=== PATIENT | female | born 1985 | race Caucasian/White ===

== ENCOUNTER 2016-10-02 07:15 | Day surgery (SDC) | payer OTHER ==
[~2016-10-02] VITALS: Ht 182.9 cm; Wt 150.0 kg
[2016-10-02] VITALS (7 sets, daily range): BP systolic 127–151; BP diastolic 67–84; PULSE 68–79; RESP 16–17; O2SAT 94–98
[~2016-10-02 07:15] MED LIST: ALBU8.5H2 IH; ALPR1TAB7 PO; CITA20TA11 PO; DULO30CA50 PO; EPIN0.3P2 IJ; ERGO2000 PO; FAMO40TA6 PO; HYDR-4003 PO; HYDR50TA76 PO; HYOS0.1218 SL; LAMO100T PO; Lactated Ringer's 1,000 ML IV SCH; MONT10TA20 PO; OMEP20TA86 PO; ONDA4TAB12 PO; PROP20TA5 PO; TIZA2CAP9 PO
[2016-10-02] MEDS ORDERED: fentaNYL-PF 50 mCg/mL 2 mL Inj ONE (07:16)
[2016-10-02] MEDS ORDERED: Propofol 10,000 mCg/mL 20 mL Inj ONE (07:16)
--- NOTE | 2016-10-02 07:32 | PCM.HPANE ---
Patient Data Surgeon Admitting Provider: Attending Provider:Jose Carlin MD Primary Care Physician:Meera Girard Other Provider:Anny Mayoingham Anesthesia Reason for Visit Eosinophylic Gastritis Ht/WT & BMI Body Mass Index Allergies Coded Allergies: Cephalosporins (Verified Allergy, Severe, KEFLEX=N/V, 10/02/16) Contrast Media (Verified Allergy, Severe, Anaphylaxis, 10/02/16) codeine (Verified Allergy, Severe, N/V, 10/02/16) Penicillins (Verified Allergy, Intermediate, hives, vomiting AMOXICILLIN IS OK, 10/02/16) cyclobenzaprine (Verified Allergy, Intermediate, ITCH ALL OVER, 10/02/16) topiramate (Verified Allergy, Intermediate, VISUAL PROBLEMS, 10/02/16) cephalexin (Verified Adverse Reaction, Mild, VOMITTING, 10/02/16) orange juice (Verified Adverse Reaction, Mild, ANGIODERMA, 10/02/16) pineapple (Verified Adverse Reaction, Mild, ANGIODERMA, 10/02/16) metoclopramide (Verified Adverse Reaction, Unknown, 10/02/16) LEGS TWITCH Past Anesthesia History Anesthesia History: Denies:: Abnormal Airway, Anesthesia Reactions, Difficult Intubation, Fam Anesthesia Reaction, Fam Malignant Hypertherm, Malignant Hyperthermia Diabetes History Hx Diabetes?: No MRSA MRSA: No Medications Active Scripts Hyoscyamine SL 0.125 Mg Subl0.125 Mg SL QID #15 TAB.SL Prov:Declan Alvarenga MD 05/15/16 Reported Medications Tizanidine 2 Mg Capsule2 Mg PO TID 10/01/16 Omeprazole 20 Mg Tablet.dr20 Mg PO BID Ref 0 10/01/16 Hydrocodone-Acetaminophen 5-325 mg 1 Each Tablet1 Tablet PO Q4H PRN For Pain Ref 0 10/01/16 Ergocalciferol (Vitamin D2) (Vitamin D2)2,000 Unit Twdexp50,000 Unit PO WEEKLY 10/01/16 Duloxetine 30 Mg Capsule.dr30 Mg PO DAILY Ref 0 10/01/16 Ondansetron ODT 4 Mg Tab.rapdis4 Mg PO Q4 PRN For Nausea 05/10/16 Propranolol HCl 20 Mg Rpfbzz83 Mg PO HS 05/10/16 Hydroxyzine HCl (HydrOXYzine Hcl)50 Mg Xxpaik76 Mg PO HS 05/10/16 Famotidine 40 Mg Npaqnu49 Mg PO HS 05/10/16 Montelukast (Singulair)10 Mg Tpihdd03 Mg PO HS 30 Days Ref 0 12/15/14 Alprazolam 1 Mg Tablet1 Mg PO DAILY PRN panic attack 09/14/14 Lamotrigine (Lamictal)100 Mg Lxnutn116 Mg PO HS 30 Days Ref 0 09/14/14 Albuterol HFA (Proair HFA)8.5 Gm Hfa.aer.ad2 Puffs IH Q4 PRN For Shortness of Breath #1 INHALER 09/14/14 Epinephrine (Epipen 2-Danny)0.3 Mg/0.3 Ml Auto.injct0.3 Mg IJ DIRECTED 09/14/14 Citalopram 20 Mg Wymqtp06 Mg PO HS 07/28/14 Discontinued Reported Medications Alprazolam (Xanax)1 Mg Tablet1 Mg PO HS 05/10/16 Discontinued Scripts Ciprofloxacin 500 Mg Goqdbk966 Mg PO BID #20 TABLET Prov:Leigha De Los Santos MD 05/12/16 History History of ENT Problems?: No HEENT History: Denies:: Abnormal Airway Difficult Intubation Dysphagia Hearing Problem Hx of Heart Problems?: No Cardiovascular History: Denies:: AICD Atrial Fibrillation Chest Pain Congestive Heart Failure Hypertension Pacemaker Valvular Heart Disease Hx of Respiratory Problem?: Yes Respiratory History: Positive for:: Asthma (BROUGHT INHALER WITH HER) Dyspnea Pneumonia Denies:: COPD Chest Surgery Cough Emphysema Hemoptysis Tuberculosis Hx Neurologic Problems?: Yes Neurological History: Positive for:: Headaches Denies:: Alzheimer's Disease CVA Dementia Dizziness Parkinson's Disease Seizures Hx of GI Problems?: Yes Gastrointestinal History: Positive for:: Rectal Bleeding Denies:: Cirrhosis Diverticulitis Gastroesphageal Reflux Gastrointestinal Bleeding Heartburn Hepatitis Hiatal Hernia Hx of Problems?: No HX of Peritoneal Dialysis: No Female Hx: Denies:: Currently (TUBAL LIGATION 2008) Endometriosis Pelvic Inflammatory Problems with Breasts? Hx Musculoskeletal Problems?: No Hx of Psycho/Social Problems?: Yes Psycho Social History: Positive for:: Anxiety Bipolar Disorder Hx Depression Denies:: Suicide Attempt Hx Surgeries?: Yes (TONSILS,APPENDIX, TUBAL LIGATION) Hx Any Other Health Problems?: Yes Other History: Positive for:: Hospitalization (2 C-SECTIONS, D AND C) Denies:: Cancer Endocrine Disease Thyroid Disease History Blood Transfusions: Denies:: Blood Transfuse Reaction Blood Transfusions Hx Diabetes: No Hx Alcohol Use: Yes (intermittant)Hx Substance Use: No Smoking Status: Former Smoker Have You Smoked inLast 12 mo: No Stop/Bang JACI Risk Assessment: Low Risk, <3 Yes Risk Assessment Category Category 1A: Patient has history of documented sleep apnea, and HAS NOT received any narcotic, sedative or anesthesia administration during this stay. Category 1B: Patient has history of documented sleep apnea, and HAS received any narcotic , sedative or anesthesia administration during this stay Category 2: Patient has SUSPECTED Obstructive Sleep Apnea, and HAS received any narcotic , sedative or anesthesia administration during this stay. Category 3: Patient has SUSPECTED Obstructive Sleep Apnea and HAS NOT received narcotic, sedative or anesthesia administration during this stay. Category 4: Outpatient in Procedural Areas with known sleep apnea or who screen positive for High Risk via the STOP/BANG questionnaire. Exam Exam General Appearance: Alert, Oriented X3, Cooperative, No Acute Distress HEENT/AIRWAY: MP 2 Lungs: Clear to Auscultation, Normal Air Movement Heart: Exam Unremarkable, Regular Rate/Rhythm, No Murmurs/Rubs/Gallops Plan Impression Patient chart reviewed, patient interviewed and anesthestic plan with risks, benefits, and alternatives discussed, and informed consent obtained. ASA Physical Status: ASA2 Mod Systemic Disease Anesthetic Plan: MAC Bene/Risks/Altern/Consents: Yes HP Complete Prior to Induction: Yes Violet Roman MD Oct 02, 2016 07:32
[2016-10-02] MEDS: Lactated Ringer's 1,000 ML IV ONE ×2 (07:57→08:03)
[2016-10-02] MEDS ORDERED: Lactated Ringer's 1,000 ML IV SCH (08:07)
--- NOTE | 2016-10-02 08:08 | PCM.ANEP1 ---
Post Anesthesia Phase 1 PACU Phase 1 Assessment Vital Signs Vital Signs Date Time Temp Pulse Resp B/P Pulse Ox O2 Delivery O2 Flow Rate FiO2 10/02/16 07:32 36.6 77 17 136/84 96 Room Air Anesthetic Administered: MAC Level of Alertness: Awake, talking MILLAN's with Equal Strength: Yes Pain: No Nausea or Vomiting: No Oxygen Delivery: Nasal Cannula Lungs: Clear to Auscultation, Normal Air Movement Violet Roman MD Oct 02, 2016 08:08
[2016-10-02] MEDS ORDERED: Ondansetron 2 mg/mL 2 mL Inj IVPUSH PRN (08:10)
--- NOTE | 2016-10-02 08:13 | PCM.ANEP2 ---
Post Anesthesia Evaluation ASA/CMS Post Anesthesia VS in Patient's Normal Range?: Yes Resp Stable; Airway Patent?: Yes CV Function & Hydration Stable: Yes Mental Status Recovered?: Yes Pain control Satisfactory?: Yes N/V Control Satisfactory?: Yes Violet Roman MD Oct 02, 2016 08:13
--- NOTE | 2016-10-02 08:30 | ENDO ---
[address] [address] ENDOSCOPY PROCEDURE PATIENT: AC AMARAL : 1985 MR#: [id number] ADMIT: 10/02/2016 JOB ID: [id number] PROCEDURE: Esophagogastroduodenoscopy with biopsy. PREOPERATIVE DIAGNOSIS(ES): Dysphagia and eosinophilic gastritis. POSTOPERATIVE DIAGNOSIS: Mild nonerosive gastritis. ANESTHESIA: Monitored anesthesia care. COMPLICATIONS: None. BLOOD LOSS: Minimal. DESCRIPTION OF PROCEDURE: After risks and benefits explained to the patient, informed consent was obtained. After anesthesia administered, upper endoscope was inserted into the mouth, intubating into the esophagus, stomach, second portion of duodenum, and mucosa carefully examined. After the procedure was done, the scope was withdrawn and procedure terminated. FINDINGS: Upon inspection of the esophagus, the esophagus appeared normal without masses, ulcers, or lesions. Z-line located 40 cm from incisors. Upon entering the stomach, there was mild nonerosive gastritis that was seen. No ulcers or masses were noticed. Retroflexion was normal. Duodenal bulb, first and second portion were normal. Biopsies taken at duodenum, antrum and body of the stomach and distal esophagus. IMPRESSIONS: Mild nonerosive gastritis. RECOMMENDATION: Await pathology results. Follow up in GI Clinic as needed.
[2016-10-02] MEDS ORDERED: Pantoprazole 40 mg ER24 Tablet PO ONE ×2 (08:40→08:55)
[2016-10-02] MEDS ORDERED: LidocaineVisc 2%:Antacid 1:1 120 mL Suspension PO ONE ×2 (09:10→09:38)
--- NOTE | 2016-10-03 16:22 | PATH ---
SURGICAL PATHOLOGY Attending Physician:Jose Carlin MD CASE STATUS: Signed Out PATIENT NAME: AC AMARAL PID: [id number] : 1985 DATE COLLECTED:10/02/2016 20:02 SPECIMEN: 1: Duodenum, Biopsy 2: Stomach, Antrum, Biopsy 3: Gastric, Biopsy 4: Esophagus, Biopsy 5: Esophagus, Biopsy CLINICAL HISTORY: 1). DUODENAL BIOPSY 2). ANTRUM BIOPSY 3). GASTRIC BIOPSY 4). DISTAL ESOPHAGUS BIOPSY 5). MID ESOPHAGUS BIOPSY FINAL DIAGNOSIS: 1.DUODENUM, BIOPSY: DUODENAL MUCOSA WITH NO DIAGNOSTIC ABNORMALITY. Negative for active inflammation, features of sprue, dysplasia, and malignancy. 2.STOMACH, ANTRUM, BIOPSY: ANTRAL MUCOSA WITH NO DIAGNOSTIC ABNORMALITY. Negative for Helicobacter pylori organisms. Negative for intestinal metaplasia. Negative for dysplasia and malignancy. 3.STOMACH, BODY, BIOPSY: BODY-TYPE MUCOSA WITH NO DIAGNOSTIC ABNORMALITY. Negative for Helicobacter pylori organisms. Negative for intestinal metaplasia. Negative for dysplasia and malignancy. 4.DISTAL ESOPHAGUS, BIOPSY: SQUAMOUS MUCOSA WITH PATCHY INCREASED INTRAEPITHELIAL EOSINOPHILS (UP TO 24 PER HIGH-POWERED FIELD), SEE COMMENT. REACTIVE PARAKERATOSIS IS ALSO PRESENT. Negative for dysplasia and malignancy. 5.ESOPHAGUS, MID, BIOPSY: SQUAMOUS MUCOSA WITH INCREASED INTRAEPITHELIAL EOSINOPHILS (GREATER THAN 50 PER HIGH-POWERED FIELD), SEE COMMENT. Negative for dysplasia and malignancy. ICD10 code K20.0 NOTE: 4. 5. The distal and mid esophageal biopsies show increased intraepithelial eosinophils. In the proper clinical setting, the histopathologic appearance would support a clinical impression of eosinophilic esophagitis. The differential diagnosis also includes drug reaction, gastrointestinal reflux, and food allergies. GROSS DESCRIPTION: The specimen is received in five formalin filled containers labeled with the patient's name. 1). The specimen is sublabeled "duodenal" and consists of 2 portions of tissue which aggregate to 0.3 x 0.3 x 0.2 CM. The specimen is entirely submitted in cassette 1A. 2). The specimen is sublabeled "antrum" and consists of 2 portions of tissue which aggregate to zero 0.3 x 0.3 x 0.3 CM. The specimen is entirely submitted in cassette 2A. 3). The specimen is sublabeled "gastric body" and consists of 3 portions of tissue which aggregate to 0.4 x 0.4 x 0.3 CM. The specimen is entirely submitted in cassette 3A. 4). The specimen is sublabeled "distal esophagus" and consists of a 0.3 x 0.3 x 0.2 CM portion of tissue which is entirely submitted in cassette 4A. 5). The specimen is sublabeled "mid esophagus" and consists of a 0.3 x 0.2 x 0.2 CM portion of tissue which is entirely submitted in cassette 5A. 10/02/2016 DAC MICRO DESCRIPTION: See diagnosis. ICD-9 CODES: CPT CODES: 1: 97985 2: 75413 3: 74449 4: 18481 5: 68094 Electronically Signed Out Payton Daniel MD [facility] [address], [place] [address] Technical component performed at [facility], [facility] [address], [place], [address]
== END 2016-10-02 23:59 | disposition home or self-care (01) ==
LOC: END 07:15
PROVIDERS: ATTEND Internal Medicine Gastroenterology
DX: K52.81 Eosinophilic gastritis or gastroenteritis (principal); G47.33 Obstructive sleep apnea (adult) (pediatric); M79.7 Fibromyalgia
CPT/HCPCS: 43239; 88305; J2250; J3010; J7120

== ENCOUNTER 2017-01-17 07:55 | Emergency (ER) | payer OTHER ==
[~2017-01-17] VITALS: Ht 182.9 cm; Wt 150.0 kg
[~2017-01-17 07:55] MED LIST changes: -Lactated Ringer's 1,000 ML IV SCH
[2017-01-17 07:59] VITALS: BP 133/89; PULSE 95; RESP 20; O2SAT 97
[2017-01-17] MEDS ORDERED: Haloperidol 5 mg/mL Inj IVPUSH ONE (08:30)
[2017-01-17] MEDS ORDERED: Promethazine Inj 50 MG in 0.9% Sodium Chloride-Pha MIX 100 ML IV ONE ×2 (08:30→08:43)
[2017-01-17] MEDS ORDERED: 0.9% Sodium Chloride 1,000 ML IV ONE (08:30)
[2017-01-17] MEDS ORDERED: Ondansetron 2 mg/mL 2 mL Inj IVPUSH ONE (08:50)
[2017-01-17 09:32] VITALS: BP 121/72; PULSE 84; RESP 16; O2SAT 96
[2017-01-17] MEDS ORDERED: HYDROmorphone 1 mg/mL Inj IVPUSH ONE (10:00)
--- NOTE | 2017-01-17 10:10 | ED.REPORT ---
HPI-Headache Date of Service January 17, 2017 ED Provider: Sofi Luevano MD Patient is a 31 year old female with history of migraines who presents to [facility] ED complaining of a migraine headache that started last night. She states that the headache started out normally with photophobia and nausea but then started to get worse and was accompanied with blurry vision on the right eye. Pain is located on the right side. She also reports intermittent tingling and numbness in her right upper and lower extremities for the last 3-4 days. She denies any recent trauma to her head, sick contacts, new medications or foods. She took Tylenol last night with no relief. She takes Propranolol, 20 mg daily. She denies any other symptoms. Nursing Notes Stated Complaint: MIGRAINE/NAUSEA Chief Complaint: Headache Nursing Notes Reviewed: Yes Allergies: Coded Allergies: Cephalosporins (Verified Allergy, Severe, KEFLEX=N/V, 01/17/17) Contrast Media (Verified Allergy, Severe, Anaphylaxis, 01/17/17) codeine (Verified Allergy, Severe, N/V, 01/17/17) Penicillins (Verified Allergy, Intermediate, hives, vomiting AMOXICILLIN IS OK, 01/17/17) cyclobenzaprine (Verified Allergy, Intermediate, ITCH ALL OVER, 01/17/17) topiramate (Verified Allergy, Intermediate, VISUAL PROBLEMS, 01/17/17) promethazine (Verified Allergy, Unknown, Restlessness, 01/17/17) cephalexin (Verified Adverse Reaction, Mild, VOMITTING, 01/17/17) orange juice (Verified Adverse Reaction, Mild, ANGIODERMA, 01/17/17) pineapple (Verified Adverse Reaction, Mild, ANGIODERMA, 01/17/17) metoclopramide (Verified Adverse Reaction, Unknown, 01/17/17) LEGS TWITCH Scheduled Citalopram (Citalopram) 20 Mg Tablet 30 MG PO HS Duloxetine (Duloxetine) 30 Mg Capsule.dr 30 MG PO DAILY Epinephrine (Epipen 2-Danny) 0.3 Mg/0.3 Ml Auto.injct 0.3 MG IJ DIRECTED Ergocalciferol (Vitamin D2) (Vitamin D2) 2,000 Unit Tablet 50,000 UNIT PO WEEKLY Famotidine (Famotidine) 40 Mg Tablet 40 MG PO HS Hydroxyzine HCl (HydrOXYzine Hcl) 50 Mg Tablet 50 MG PO HS Hyoscyamine SL (Hyoscyamine SL) 0.125 Mg Subl 0.125 MG SL QID Lamotrigine (Lamictal) 100 Mg Tablet 100 MG PO HS Montelukast (Singulair) 10 Mg Tablet 10 MG PO HS Omeprazole (Omeprazole) 20 Mg Tablet.dr 20 MG PO BID Propranolol HCl (Propranolol HCl) 20 Mg Tablet 20 MG PO HS Tizanidine (Tizanidine) 2 Mg Capsule 2 MG PO TID Scheduled PRN Albuterol HFA (Proair HFA) 8.5 Gm Hfa.aer.ad 2 PUFFS IH Q4 PRN PRN For Shortness of Breath Alprazolam (Alprazolam) 1 Mg Tablet 1 MG PO DAILY PRN PRN panic attack Hydrocodone-Acetaminophen 5-325 mg (Hydrocodone-Acetaminophen 5-325 mg) 1 Each Tablet 1 TABLET PO Q4H PRN PRN For Pain Ondansetron ODT (Ondansetron ODT) 4 Mg Tab.rapdis 4 MG PO Q4 PRN PRN For Nausea oxyCODONE-Acetaminophen 5-325 mg (oxyCODONE-Acetaminophen 5-325 mg) 1 Each Tablet 1-2 TAB PO Q6H PRN PRN For Pain General Time Seen by MD: 08:09 Chief Complaint Migraine headache Hx Obtained From: Patient Arrived By: Walk-in Sudden in Onset?: No Onset Occurred: 9 - 12 hours ago Symptom Duration: Since onset Location: : Parietal right: Temporal right Quality: Fullness, Pressure Radiation: : Does not radiate Severity: Current: Pain level 9 out of 10 Recent Healthcare: No recent doctor visit Risk-Headache )( SAH Risk Stratification RF Statements: No risk factors )( IC Mass Risk Stratification RF Statements: No risk factors NIH Stroke Scale Level of Consciousness: Alert and responsive (0) Ask Month & Age: Both questions right (0) Open/Close Eyes/Hand [employer]: Performs both tasks (0) Horizontal EO Movements: None (0) Visual Eastman: No visual loss (0) Facial Palsy: Normal symmetry (0) Right Arm Motor Drift (10s): No drift 10 sec (0) Left Arm Motor Drift (10s): No drift 10 sec (0) Right Leg Motor Drift (5s): No drift 5 sec (0) Left Leg Motor Drift (5s): No drift 5 sec (0) Limb Ataxia FNF/Heel-Rico: No ataxia (0) Sensation (Arms/Legs/Face): Pinprick less sharp (1) Language Aphasia: No aphasia, normal (0) Dysarthria: No dysarthria, normal (0) Extinction/Inattention: No exctinct/inattent (0) NIHSS Score: 1 Date NIHSS Performed: January 17, 2017 Past Medical History Past Medical History Notes: PCP: DELIA Tena GI specialist: Dr. Carrillo Tube Splicer: Dr Lr in at [facility] in [place] Past Medical History Bipolar disorder Fibromyalgia Eosinophilic esophagitis Asthma IBS Hx of migraines Past Surgical History Reports: Appendectomy Reports: Tubal ligation Family History Crohn's disease, ana Smoking History Former Smoker Social History Alcohol Use: Denies alcohol use Other Social History: Good social support, , Lives with children, Local resident Ambulatory Status Independent Review of Systems Basic Review of Systems Respiratory: No shortness of breath, No wheeze Cardiovascular: No chest pain, No palpitations : No dysuria, No frequency Constitutional: Reports: Chills Eyes: Reports: Blurred right GI: Reports: Nausea, Vomiting, Denies: Abdominal pain, Constipation, Diarrhea Skin: Reports Diaphoresis, Denies Rash Neurologic: Reports: Headache, Numbness (Right upper and lower extremity), Denies: Dizziness Physical Exam Initial Vital Signs Vital Signs (First) Date Time Temp Pulse Resp B/P Pulse Ox O2 Delivery O2 Flow Rate FiO2 01/17/17 07:59 36.3 95 20 133/89 97 Room Air Initial VS: Reviewed, Vital signs normal General/Constitutional: Awake, Alert, No acute distress, Well appearing, Well developed, Well hydrated, Well nourished, Cooperative Head / Eyes: Atraumatic, Normocephalic, PERRL, EOMI, No nystagmus, No periorbital redness, No scleral icterus, Conjunctiva NL Acuity / Tonometry: Positive: Intraocular pressure R, Visual acuity abnormal R Pupils: Positive: Photophobia R Neck: Atraumatic, Supple, Full range of motion, No adenopathy, Non-tender Neurologic: Oriented X3, Speech NL, No motor deficits, CN II - XII intact Sensory Deficit: Positive: Lower extremity R, Upper extremity R Respiratory / Chest: Breath sounds = bilat, No respiratory distress, No wheezing Cardiovascular: Heart rate NL, Regular rhythm, Heart sounds NL, No murmurs Abdomen: Soft, Non-tender Skin: No rash, Warm, Dry, Intact Psychiatric: Affect NL, Mood NL Lower Extremity / Pelvis / MS: No swelling Interpretation & Diagnostics Lab Results Interpretation Result Diagram: 01/17/17 0830 01/17/17 0830 Test 01/17/17 08:30 01/17/17 13:13 White Blood Count 7.0th/mm3 (3.8-10.1) Red Blood Count 4.93mil/mm3 (3.90-5.20) Hemoglobin 13.1g/dL (12.0-15.6) Hematocrit 38.2% (35.0-46.0) Mean Corpuscular Volume 77.5fL (81-100) Mean Corpuscular Hemoglobin 26.6pg (27.0-35.0) Mean Corpuscular Hemoglobin Concent 34.3% (32.0-37.0) Red Cell Distribution Width 14.7% (12.3-15.4) Platelet Count 424bil/L (150-400) Neutrophils (%) (Auto) 65.5% (40-74) Lymphocytes (%) (Auto) 23.6% (14-46) Monocytes (%) (Auto) 3.8% (4-12) Eosinophils (%) (Auto) 6.4% (0-5) Basophils (%) (Auto) 0.6% (0-3) Sodium Level 139mEq/L (134-144) Potassium Level 4.2mEq/L (3.5-5.2) Chloride Level 102mEq/L (97-108) Carbon Dioxide Level 22mmol/L (18-29) Blood Urea Nitrogen 8mg/dL (6-20) Creatinine 0.71mg/dL (0.57-1.00) Estimat Glomerular Filtration Rate 136mL/min (>59) Glucose Level 145mg/dL (60-99) Calcium Level 9.8mg/dL (8.5-10.1) Total Bilirubin 0.4mg/dL (0.0-1.2) Aspartate Amino Transf (AST/SGOT) 35U/L (0-50) Alanine Aminotransferase (ALT/SGPT) 49U/L (0-32) Alkaline Phosphatase 96U/L (25-150) Total Protein 7.7g/dL (6.4-8.4) Albumin 4.2g/dL (3.4-5.0) Hold Urine Received (Received) CT Head Interpretation No acute intracranial process Interpretation / Wet Read by: Interpret - Radiologist Re-Eval/Medical Decision Med Decision/Clinical Course In summary, this is a 31 year old female with history of migraines who presents to ED with a migraine since yesterday, and intermittent right arm and leg tingling and numbness for the last 3-4 days. In Ed, her vital signs are normal. She is in no acute distress but photophobic. Her exam revealed very mild right sided facial numbness along with right upper and lower extremity numbness. her NIH stroke scale is 1 due to decreased sensation on her right side. These symptoms have been present for more than 24 hours and are very minima, so TPA criteria not met. She reported 9/10 migraine headache and failed the migraine treatment with zofran, toradol, benadryl and haldol so dilaudid was administered. Her nausea was improved. She continued to have numbness on the right side. She also developed chills while in ED, but remained afebrile. At this point we ordered basic blood work and CT head without contrast even though the suspicion for an acute CVA remained low. CT revealed no acute intracranial changes. Patient remained to have right sided paresthesia. At this time MRI stroke protocol was ordered. Unfortunately, test has not been done due to patient's habitus. Upon closer look at her previous ED visits for migraines, it was noted that her migraines are often accompanied by numbness in her upper and lower extremities which seems to be transient. This confirms the diagnosis of a migraine variant. Diagnosis has been discussed with the patient. She received an additional dose of pain medication (Percocet, 5-325 mg, 2 tabs) and sent home in an improved, stable condition with a prescription for Percocet, 5-325 mg, #10. Counseled Regarding: Diagnosis, Lab results, Need for follow-up, When/why to return to ED Discharge & Departure Shift Change Sign-Out Response to Therapy: Improved Additonal Information: Patient's headache did not improve after Toradol, 30 mg IV. Patient responded well to Dilaudid, 1 mg IV. Her headache decreased from 9/10 to 5/10. Her nausea responded well to Zofran. Patient's headache returned back to 9/10 a few hours later. She received Percocet, 5-325 mg, 2 tabs orally before dicharge. Impression: Primary Impression: Migraine Migraine type: with aura Status migrainosus presence: without status migrainosus Intractability: intractable Qualified Code: G43.119 - Migraine with aura, intractable, without status migrainosus Disposition: Home Discharge Condition Condition: Stable Additional Instructions: Thank you for seeking care at Emergency Department today. The good news is that the CT of your brain was normal. You are having a migraine variant. You will be sent home with some pain medications. You received additional pain medication, so please go home, and try to sleep in a dark, quiet room for a few hours. Hopefully this will help you to eliminate your migraine. You can take an additional dose of pain medication in 6 hours if needed. Do not forget to stay well hydrated as well as dehydration is known to trigger headaches. Please make a follow up appointment with your PCP for further management of your migraines. Please return to Emergency Department should you develop sudden weakness, syncope, chest pain, shortness of breath. Thank you for letting us partake in your care today. Referrals: Meera Girard (PCP) EDSupervising Provider for APC: Sofi Luevano MD Attending Statement 31-year-old woman presents with severe headache. Initially states this is similar to prior migraines then says that it is more severe. She complains of right sided partial facial right side, last 3 fingers on her right hand and her outer 3 toes on the right side with numbness. She says that she has never had this before. The numbness preceded the headache by at least 48 hours. She was given her usual headache cocktail with no relief of symptoms. At that point she was complaining of being hot and decision was made to expand our differential and workup. CT scan of the head was ordered and is unremarkable labs were ordered and were also unremarkable. Attempted MRI however she did not physically fit into our scanner. On further evaluation of medical records with previous headache presentations to the emergency room she has in fact described a similar numbness. Best explanation at this point is that the numbness is in the chronic musculoskeletal findings were part of her migraine complex. At this point probability of stroke as a diagnosis is very low and she is discharged home. Seen and examined with Dr. Francisco. Agree with assessment and plan as above. copies to: Meera Girard Oksana S DO January 17, 2017 10:10 Sofi Luevano MD January 17, 2017 13:30
[2017-01-17 10:11] LABS: BASOPHILS % (AUTO) 0.6 % (0-3); EOSINOPHILS % (AUTO) 6.4 % (0-5); MONOCYTES % (AUTO) 3.8 % (4-12); Mean Corpuscular Hemoglobin 26.6 pg (27.0-35.0); Mean Corpuscular Volume 77.5 fL (81-100); NEUTROPHILS % (AUTO) 65.5 % (40-74); Platelet Count 424 bil/L (150-400)
--- NOTE | 2017-01-17 10:32 | DRSVH ---
PROCEDURE: CT BRAIN WITHOUT CONTRAST ([id number]) INDICATIONS: headache, right sided paresthesia TECHNIQUE: Noncontrast 4.5 mm thick angled axial sections acquired from the foramen magnum to the vertex, with c oronal reformats. COMPARISON: [facility], CT, CT BRAIN WO CON, 05/27/2015, 18:55. FINDINGS: Image quality: Excellent. CSF spaces: Basal cisterns are patent. No extra-axial fluid collections. Ventricles are normal in size and shape. Brain: No midline shift. No intracranial masses or hemorrhage. Severino-white matter interface is norm al. Skull and face: Calvarium and visualized facial bones are intact, without suspicious lesions. Sinuses: Visualized sinuses and mastoids are clear. IMPRESSION: No acute intracranial process Dictated by: Ethan Munoz M.D. on 01/17/2017 at 10:29 Approved by: Ethan Munoz M.D. on 01/17/2017 at 10:30
[2017-01-17] MEDS ORDERED: oxyCODONE-Acetamin 5-325 mg Tablet PO ONE ×2 (12:45→12:50)
[2017-01-17] MEDS ORDERED: OXYC1TAB24 PO (12:51)
[2017-01-17 13:18] VITALS: BP 123/72; PULSE 67; RESP 16; O2SAT 97
[2017-01-17 13:29] VITALS: BP 123/72; PULSE 67; RESP 16; O2SAT 97
== END 2017-01-17 13:30 | disposition home or self-care (01) ==
LOC: SED 07:55
DX: G43.119 Migraine with aura, intractable, without status migrainosus (principal); R20.2 Paresthesia of skin; F31.9 Bipolar disorder, unspecified; J45.909 Unspecified asthma, uncomplicated; Z87.891 Personal history of nicotine dependence; Z88.1 Allergy status to other antibiotic agents; Z91.041 Radiographic dye allergy status; Z88.0 Allergy status to penicillin; Z88.5 Allergy status to narcotic agent; Z88.8 Allergy status to other drugs, medicaments and biological substances; Z91.018 Allergy to other foods
CPT/HCPCS: 36415; 70450; 80053; 85025; 96361; 96374; 96375; 99285; J1170; J1200; J1630; J1885; J2405; J3360; J7030

== ENCOUNTER 2017-02-15 02:03 | Emergency (ER) | payer OTHER ==
[~2017-02-15] VITALS: Ht 182.9 cm; Wt 154.6 kg
[~2017-02-15 02:03] MED LIST changes: +HYOS-21 SL; -HYOS0.1218 SL; +OXYC1TAB24 PO
[2017-02-15 02:11] VITALS: BP 132/93; PULSE 89; RESP 16; O2SAT 96
--- NOTE | 2017-02-15 02:29 | ED.REPORT ---
HPI-Abd Pain F Under 40 Date of Service Feb 15, 2017 ED Provider: Dr. Sam Miguel M.D. The patient is a 31 year old female with a medical history including eosinophilic esophagitis, asthma, IBS, and migraines who presents to the ED with nausea and vomiting onset just before 0100 this morning. Associated symptoms include diarrhea, hematochezia (chronic), and RUQ abdominal pain. The patient denies fever, hematemesis, melena, or other symptoms. She has taken her daily Omeprazole and Singulair with no relief. The patient has had similar symptoms in the past. Nursing Notes Stated Complaint: VOMITING, DIARRHEA Chief Complaint: Female Abdominal Pain Nursing Notes Reviewed: Yes Allergies: Coded Allergies: Cephalosporins (Verified Allergy, Severe, KEFLEX=N/V, 01/17/17) Contrast Media (Verified Allergy, Severe, Anaphylaxis, 01/17/17) codeine (Verified Allergy, Severe, N/V, 01/17/17) Penicillins (Verified Allergy, Intermediate, hives, vomiting AMOXICILLIN IS OK, 01/17/17) cyclobenzaprine (Verified Allergy, Intermediate, ITCH ALL OVER, 01/17/17) topiramate (Verified Allergy, Intermediate, VISUAL PROBLEMS, 01/17/17) promethazine (Verified Allergy, Unknown, Restlessness, 01/17/17) cephalexin (Verified Adverse Reaction, Mild, VOMITTING, 01/17/17) orange juice (Verified Adverse Reaction, Mild, ANGIODERMA, 01/17/17) pineapple (Verified Adverse Reaction, Mild, ANGIODERMA, 01/17/17) metoclopramide (Verified Adverse Reaction, Unknown, 01/17/17) LEGS TWITCH Scheduled Citalopram (Citalopram) 20 Mg Tablet 30 MG PO HS Duloxetine (Duloxetine) 30 Mg Capsule.dr 30 MG PO DAILY Epinephrine (Epipen 2-Danny) 0.3 Mg/0.3 Ml Auto.injct 0.3 MG IJ DIRECTED Ergocalciferol (Vitamin D2) (Vitamin D2) 2,000 Unit Tablet 50,000 UNIT PO WEEKLY Famotidine (Famotidine) 40 Mg Tablet 40 MG PO HS Hydroxyzine HCl (HydrOXYzine Hcl) 50 Mg Tablet 50 MG PO HS Hyoscyamine SL (Hyoscyamine SL) 0.125 Mg Subl 0.125 MG SL QID Lamotrigine (Lamictal) 100 Mg Tablet 100 MG PO HS Montelukast (Singulair) 10 Mg Tablet 10 MG PO HS Omeprazole (Omeprazole) 20 Mg Tablet.dr 20 MG PO BID Ondansetron ODT (Ondansetron ODT) 8 Mg Tab.rapdis 8 MG PO QID Propranolol HCl (Propranolol HCl) 20 Mg Tablet 20 MG PO HS Tizanidine (Tizanidine) 2 Mg Capsule 2 MG PO TID Scheduled PRN Albuterol HFA (Proair HFA) 8.5 Gm Hfa.aer.ad 2 PUFFS IH Q4 PRN PRN For Shortness of Breath Alprazolam (Alprazolam) 1 Mg Tablet 1 MG PO DAILY PRN PRN panic attack Hydrocodone-Acetaminophen 5-325 mg (Hydrocodone-Acetaminophen 5-325 mg) 1 Each Tablet 1 TABLET PO Q4H PRN PRN For Pain Ondansetron ODT (Ondansetron ODT) 4 Mg Tab.rapdis 4 MG PO Q4 PRN PRN For Nausea oxyCODONE-Acetaminophen 5-325 mg (oxyCODONE-Acetaminophen 5-325 mg) 1 Each Tablet 1-2 TAB PO Q6H PRN PRN For Pain General Time Seen by MD: 02:28 Chief Complaint Nausea, Vomiting moderate Hx Obtained From: Patient Arrived By: Walk-in Sudden in Onset?: Yes Onset Occurred: 1 - 4 hours ago Symptom Duration: Since onset Location: : RUQ Quality: Painful Severity: Current: Moderate Severity: Maximum: Moderate Pertinent Negative: Relieved by nothing Context Related History: Reports: Abdominal surgery, Inflam bowel disease Recent Healthcare: No recent doctor visit Similar Sx Previous: Yes Past Medical History Past Medical History Notes: PCP: DELIA Tena GI specialist: Dr. Carrillo Structural Rigger: Dr Lr in at [facility] [place] Past Medical History Bipolar disorder Fibromyalgia Eosinophilic esophagitis Asthma IBS Hx of migraines Past Surgical History Reports: Appendectomy Reports: Tubal ligation Family History Crohn's disease, ana Smoking History Former Smoker Social History Alcohol Use: Denies alcohol use Other Social History: Good social support, , Lives with children, Local resident Ambulatory Status Independent Review of Systems Constitutional: Denies: Fever Respiratory: Denies: Non-productive cough, Shortness of breath GI: Reports: Abdominal pain (RUQ), Diarrhea, Hematochezia (Chronic), Nausea, Vomiting, Denies: Hematemesis, Melena Complete sys rev & neg: except as marked. Physical Exam Initial Vital Signs Vital Signs (First) Date Time Temp Pulse Resp B/P Pulse Ox O2 Delivery O2 Flow Rate FiO2 02/15/17 02:11 35.6 89 16 132/93 96 Room Air Initial VS: Reviewed Head / Eyes: Atraumatic, Normocephalic ENT: Conjunctiva normal, No scleral icterus Neck: Supple, Full range of motion Skin: Warm, Dry, No cyanosis Neurologic: Alert, Oriented, Nonfocal Psychiatric: Behavior normal, Normal thought content General/Constitutional: Awake, Alert, No acute distress, Well hydrated Behavior: Positive: Anxious Appearance / Presentation: Positive: Obese, morbidly Respiratory / Chest: Breath sounds NL, Breath sounds = bilat, No respiratory distress Cardiovascular: Heart rate NL, Regular rhythm, Heart sounds NL Abdomen: Soft Tenderness/Guarding/Rebound: Positive: Tender diffuse Interpretation & Diagnostics URINE TEST: Negative Lab Results Interpretation Result Diagram: 02/15/17 0300 02/15/17 0300 Test 02/15/17 03:00 02/15/17 04:00 White Blood Count 9.2th/mm3 (3.8-10.1) Red Blood Count 5.22mil/mm3 (3.90-5.20) Hemoglobin 14.0g/dL (12.0-15.6) Hematocrit 41.0% (35.0-46.0) Mean Corpuscular Volume 78.5fL (81-100) Mean Corpuscular Hemoglobin 26.8pg (27.0-35.0) Mean Corpuscular Hemoglobin Concent 34.1% (32.0-37.0) Red Cell Distribution Width 14.6% (12.3-15.4) Platelet Count 503bil/L (150-400) Neutrophils (%) (Auto) 47.3% (40-74) Lymphocytes (%) (Auto) 41.4% (14-46) Monocytes (%) (Auto) 5.7% (4-12) Eosinophils (%) (Auto) 4.8% (0-5) Basophils (%) (Auto) 0.7% (0-3) Sodium Level 139mEq/L (134-144) Potassium Level 4.1mEq/L (3.5-5.2) Chloride Level 100mEq/L (97-108) Carbon Dioxide Level 22mmol/L (18-29) Blood Urea Nitrogen 10mg/dL (6-20) Creatinine 0.84mg/dL (0.57-1.00) Estimat Glomerular Filtration Rate 112mL/min (>59) Glucose Level 117mg/dL (60-99) Calcium Level 10.1mg/dL (8.5-10.1) Total Bilirubin 0.2mg/dL (0.0-1.2) Aspartate Amino Transf (AST/SGOT) 37U/L (0-50) Alanine Aminotransferase (ALT/SGPT) 42U/L (0-32) Alkaline Phosphatase 122U/L (25-150) Total Protein 8.1g/dL (6.4-8.4) Albumin 4.4g/dL (3.4-5.0) Lipase 27U/L (13-60) Urine Color Yellow (YELLOW) Urine Appearance Slightly cloudy Urine pH 5.5 (5.0-8.0) Urine Specific [place] 1.025 (1.003-1.035) Urine Protein Tracemg/dL (NEG,TRACE) Urine Glucose (UA) Negativemg/dL (NEGATIVE) Urine Ketones Tracemg/dL (NEGATIVE) Urine Occult Blood Moderate (NEGATIVE) Urine Nitrite Negative (NEGATIVE) Urine Bilirubin Negative (NEGATIVE) Urine Urobilinogen Normalmg/dL (NORMAL) Urine Leukocyte Esterase Negative (NEGATIVE) Urine RBC 0-2/hpf (0-2) Urine WBC 0-5/hpf (0-5) Urine Epithelial Cells Many/hpf (NONE-MOD) Urine Crystals Oxalic acid crystals (NONE Urine Bacteria Few/hpf (NONE-FEW) Urine Hyaline Casts None/lpf (NONE) Urine Granular Casts None seen (NONE SEEN) Urine Waxy Casts None seen (NONE SEEN) Urine Red Blood Cell Casts None seen (NONE SEEN) Urine White Blood Cell Casts None seen (NONE SEEN) Urine Mucus Present (None Seen) Urine Trichomonas None seen (NONE SEEN) Urine Yeast None (NONE SEEN) Urinalysis Comment None Urine Culture Reflexed Not indicated Re-Eval/Medical Decision Med Decision/Clinical Course Med Decision/Clinical Course: 28 with fibromyalgia and eosinophilic esophagitis presents with epigastric pain nausea and vomiting similar to multiple prior episodes. Laparotomy revealing. No indication for best imaging at this point. Home with ongoing omeprazole. Consider rare intermittent pain med use, to be determined by her PCP. Source of Hx: Old records Re-Evaluation/Progress : Time of Eval: 04:28 Patient Status: Condition improved Re-Evaluation/Progress Note: Patient is feeling marginally better. Discussed with patient lab results, diagnosis, and plan for discharge after Tylenol administration. Follow-up and return to the ER instructions given. Patient agrees with plan for care and all questions were addressed. Counseled Regarding: Diagnosis, Lab results, Need for follow-up, When/why to return to ED Discharge & Departure Primary Impression: Abdominal Pain, Epigastric Additional Impression: Allergic eosinophilic esophagitis Discharge Condition All VS Reviewed: Yes Condition: Improved Patient Instructions: Gastritis (ED) Additional Instructions: Continue your current prescribed medications. Zofran if needed at home for nausea, up to four times daily. Talk to your doctor about having pain medicine at home for rare/occasional use. It is counterproductive to be on chronic narcotics for this kind of pain. This situation is similar to fibromyalgia, and in the long run, makes things worse. Return if any immediate issues over the weekend. Referrals: Meera Girard (PCP) Marileeibsilas Attestation Portions of this note were transcribed by Grisel Beth. I, Dr. Miguel, personally performed the history, physical exam, and medical decision-making; I reviewed and confirmed the accuracy of the information in the transcribed note. Signed by: Greyson Matta, 02/15/2017, 05:30 copies to: Meera Girard Christopher W MD Feb 15, 2017 02:29 GRISEL BETH Feb 15, 2017 02:48
[2017-02-15] MEDS ORDERED: Ondansetron 2 mg/mL 2 mL Inj IVPUSH ONE ×2 (02:40→03:45)
[2017-02-15] MEDS ORDERED: Famotidine Inj 20 MG in IV Premix 1 EACH IV ONE (02:50)
[2017-02-15] MEDS ORDERED: Pantoprazole 4 mg/mL 10 mL Inj IVPUSH ONE (02:50)
[2017-02-15 03:30] LABS: BASOPHILS % (AUTO) 0.7 % (0-3)
[2017-02-15 03:34] LABS: EOSINOPHILS % (AUTO) 4.8 % (0-5); MONOCYTES % (AUTO) 5.7 % (4-12); Mean Corpuscular Hemoglobin 26.8 pg (27.0-35.0); Mean Corpuscular Volume 78.5 fL (81-100); NEUTROPHILS % (AUTO) 47.3 % (40-74); Platelet Count 503 bil/L (150-400)
[2017-02-15] MEDS ORDERED: Dexamethasone Inj 10 MG in 0.9% Sodium Chloride-Pha MIX 50 ML IV ONE (03:45)
[2017-02-15 04:22] LABS: APPEARANCE,URINE SLIGHTLY CLOUDY (CLEAR,HAZY); COLOR,URINE YELLOW (YELLOW); OCCULT BLOOD,URINE MODERATE (NEGATIVE); PH,URINE 5.5 (5.0-8.0); UROBILINOGEN,URINE NORMAL (NORMAL)
[2017-02-15] MEDS ORDERED: Acetaminophen IV 1,000 MG in IV Premix 1 EACH IV ONE (04:25)
[2017-02-15] MEDS ORDERED: ONDA8TAB10 PO (05:13)
[2017-02-15 05:39] VITALS: PULSE 72; RESP 18; O2SAT 98
== END 2017-02-15 05:15 | disposition home or self-care (01) ==
LOC: SED 02:03
DX: R10.13 Epigastric pain (principal); K20.0 Eosinophilic esophagitis; R10.11 Right upper quadrant pain; F31.9 Bipolar disorder, unspecified; J45.909 Unspecified asthma, uncomplicated; M79.7 Fibromyalgia; Z87.891 Personal history of nicotine dependence; Z88.0 Allergy status to penicillin; Z88.1 Allergy status to other antibiotic agents; Z88.5 Allergy status to narcotic agent; Z88.8 Allergy status to other drugs, medicaments and biological substances; Z91.018 Allergy to other foods; Z91.041 Radiographic dye allergy status
CPT/HCPCS: 36415; 80053; 81000; 83690; 85025; 96374; 96375; 96376; 99285; J0131; J1100; J2405; J3490

== ENCOUNTER 2017-02-23 02:47 | Emergency (ER) | payer OTHER ==
[~2017-02-23] VITALS: Ht 190.5 cm; Wt 163.6 kg
[~2017-02-23 02:47] MED LIST changes: +ONDA8TAB10 PO
[2017-02-23] MEDS ORDERED: MethylprednisoLONE Sodium Succinate 62.5 mg/mL 2 mL Inj IVPUSH ONE (02:50)
[2017-02-23] MEDS ORDERED: Albuterol 2.5 mg/3 mL Inhalation Solution NEB ONE (02:50)
[2017-02-23] MEDS ORDERED: 0.9% Sodium Chloride 1,000 ML IV ONE (02:50)
[2017-02-23 02:54] VITALS: BP 127/101; PULSE 81; RESP 30; O2SAT 92
[2017-02-23 03:04] VITALS: PULSE 72; RESP 14; O2SAT 96
--- NOTE | 2017-02-23 03:07 | ED.REPORT ---
HPI-Allergic Reaction Date of Service Feb 23, 2017 ED Provider: Dannie Raya MD Pt is a 31 year old female with a history of almond allergy, HTN, and asthma who presents to the ED via EMS after eating an almond cheyenne prior to arrival. Per EMS, the pt had the almond taken out of the almond cheyenne prior to eating it. She c/o associated abdominal pain, SOB, and allergic reaction. She denies any other symptoms.The pt had an allergic reaction on 02/14/17 for unspecified reasons. Nursing Notes Stated Complaint: ALLERGIC REACTION, SOB Chief Complaint: Allergic Reaction Nursing Notes Reviewed: Yes Allergies: Coded Allergies: Cephalosporins (Verified Allergy, Severe, KEFLEX=N/V, 01/17/17) Contrast Media (Verified Allergy, Severe, Anaphylaxis, 01/17/17) codeine (Verified Allergy, Severe, N/V, 01/17/17) Penicillins (Verified Allergy, Intermediate, hives, vomiting AMOXICILLIN IS OK, 01/17/17) cyclobenzaprine (Verified Allergy, Intermediate, ITCH ALL OVER, 01/17/17) topiramate (Verified Allergy, Intermediate, VISUAL PROBLEMS, 01/17/17) promethazine (Verified Allergy, Unknown, Restlessness, 01/17/17) cephalexin (Verified Adverse Reaction, Mild, VOMITTING, 01/17/17) orange juice (Verified Adverse Reaction, Mild, ANGIODERMA, 01/17/17) pineapple (Verified Adverse Reaction, Mild, ANGIODERMA, 01/17/17) metoclopramide (Verified Adverse Reaction, Unknown, 01/17/17) LEGS TWITCH Scheduled Citalopram (Citalopram) 20 Mg Tablet 30 MG PO HS Duloxetine (Duloxetine) 30 Mg Capsule.dr 30 MG PO DAILY Epinephrine (Epipen 2-Danny) 0.3 Mg/0.3 Ml Auto.injct 0.3 MG IJ DIRECTED Ergocalciferol (Vitamin D2) (Vitamin D2) 2,000 Unit Tablet 50,000 UNIT PO WEEKLY Famotidine (Famotidine) 40 Mg Tablet 40 MG PO HS Hydroxyzine HCl (HydrOXYzine Hcl) 50 Mg Tablet 50 MG PO HS Hyoscyamine SL (Hyoscyamine SL) 0.125 Mg Subl 0.125 MG SL QID Lamotrigine (Lamictal) 100 Mg Tablet 100 MG PO HS Montelukast (Singulair) 10 Mg Tablet 10 MG PO HS Omeprazole (Omeprazole) 20 Mg Tablet.dr 20 MG PO BID Ondansetron ODT (Ondansetron ODT) 8 Mg Tab.rapdis 8 MG PO QID Prednisone (PredniSONE) 20 Mg Tablet 20 MG PO TID Propranolol HCl (Propranolol HCl) 20 Mg Tablet 20 MG PO HS Tizanidine (Tizanidine) 2 Mg Capsule 2 MG PO TID Scheduled PRN Albuterol HFA (Proair HFA) 8.5 Gm Hfa.aer.ad 2 PUFFS IH Q4 PRN PRN For Shortness of Breath Alprazolam (Alprazolam) 1 Mg Tablet 1 MG PO DAILY PRN PRN panic attack Epinephrine (Epipen 2-Danny) 0.3 Mg/0.3 Ml Auto.injct 0.3 MG IJ DAILY PRN PRN For Anaphyllaxis Hydrocodone-Acetaminophen 5-325 mg (Hydrocodone-Acetaminophen 5-325 mg) 1 Each Tablet 1 TABLET PO Q4H PRN PRN For Pain Ondansetron ODT (Ondansetron ODT) 4 Mg Tab.rapdis 4 MG PO Q4 PRN PRN For Nausea oxyCODONE-Acetaminophen 5-325 mg (oxyCODONE-Acetaminophen 5-325 mg) 1 Each Tablet 1-2 TAB PO Q6H PRN PRN For Pain General Time Seen by MD: 02:48 Chief Complaint Allergic reaction Hx Obtained From: EMS Arrived By: Ambulance Onset Occurred: Just prior to arrival Symptom Duration: Since onset Location: : Abdomen Quality: Painful Severity: Current: Moderate Severity: Maximum: Moderate Recent Healthcare: Recent doctor visit Similar Sx Previous: Yes Past Medical History Past Medical History Notes: PCP: DELIA Tena GI specialist: Dr. Carrillo User Experience Architect: Dr Lr in at [facility] in [place] Past Medical History Bipolar disorder Fibromyalgia Eosinophilic esophagitis Asthma IBS Migraines Depression Anxiety Reports: Hypertension, Denies: Congestive heart failure, Diabetes mellitus Past Surgical History C-sections (x2) Reports: Appendectomy Reports: Tubal ligation Family History Crohn's disease, ana Smoking History Former Smoker Social History Alcohol Use: Denies alcohol use Drug Use: THC (Daily) Other Social History: Good social support, , Lives with children, Local resident Ambulatory Status Independent Review of Systems Respiratory: Reports: Shortness of breath, Denies: Non-productive cough GI: Reports: Abdominal pain Allergy / Immune: Reports: Allergic reaction, Anaphylaxis Complete sys rev & neg: except as marked. Physical Exam Initial Vital Signs Vital Signs (First) Date Time Temp Pulse Resp B/P Pulse Ox O2 Delivery O2 Flow Rate FiO2 02/23/17 02:54 81 30 127/101 92 Room Air 02/23/17 06:57 36.6 Initial VS: Reviewed, Vital signs abnormal Neck: Supple, Full range of motion Extremities: Vascular intact, Neuro intact Neurologic: Alert, Oriented, Nonfocal Psychiatric: Mood/affect normal, Behavior normal General/Constitutional: Awake, Alert, Cooperative Distress / Hydration: Positive: Distress severe Behavior: Positive: Anxious Erythematous face and neck. Resp Distress / Stridor: Positive: Resp distress moderate Wheezing / Retractions: Positive: Wheezing expiratory, Wheezing inspiratory, Wheezing moderate Tight wheezing in all lung [place], and decreased airway movements. Cardiovascular: Heart rate NL, Regular rhythm, Heart sounds NL Heart Rate / Rhythm: Positive: Tachycardia (without irregularity) Skin: Atraumatic, Warm, Intact Rash / Lesion Location: Positive: Generalized (erythematous and urticarial), Negative: Intra-oral, Mucous membranes Abdomen: Atraumatic, Soft Diffuse RUQ abdominal pain Interpretation & Diagnostics Lab Results Interpretation Test 02/23/17 02:50 Hold Purple Top Tube Received (Received) Hold Blue Top Tube Received (Received) Hold [place] Top Tube Received (Received) Re-Eval/Medical Decision Med Decision/Clinical Course 31-year-old female with an escalating almond allergy presents with severe symptoms and respiratory distress. She was treated aggressively as above. There was slow but constant improvement with a near return to baseline. She will be discharged home with prednisone and Benadryl. She will return if she has any significant worsening. She was also given an EpiPen with instructions on its use. She was also instructed to be much more careful then she has been in the past as this could well be life threatening if there is continued progression. Source of Hx: Old records Re-Evaluation/Progress #1: Time of Eval: 03:12 Patient Status: Condition improved Re-Evaluation/Progress Note: Pt rechecked. She reports abominal pain. All questions addressed. Re-Evaluation/Progress #2: Time of Eval: 04:47 Patient Status: Condition improved Re-Evaluation/Progress Note: Pt rechecked. Pt reports that she is still experiencing abdominal pain. All questions addressed. Re-Evaluation/Progress #3: Time of Eval: 06:08 Patient Status: Condition improved Re-Evaluation/Progress Note: Pt rechecked. Informed pt of plan for discharge. Pt understands and agrees with plan for discharge. F/U instructions and RTER warnings given. All questions addressed. Counseled Regarding: Diagnosis, Lab results, Need for follow-up, When/why to return to ED Discharge & Departure Primary Impression: Anaphylaxis Encounter type: subsequent encounter Qualified Code: T78.2XXD - Anaphylactic shock, unspecified, subsequent encounter Disposition: Home Discharge Condition All VS Reviewed: Yes Condition: Stable Patient Instructions: Anaphylaxis (ED) Additional Instructions: You had a severe allergic reaction to almonds. Taking the almonds out of something is not sufficient once they have been cooked or processed together. Avoid anything containing almonds in the future. You received fluids, Benadryl, Solu-Medrol, albuterol and epinephrine. You will continue now with Benadryl and prednisone. Return here if you have recurrent symptoms. Referrals: Meera Girard (PCP) Crit Care Except Billable Proc Time Spent: 30-74 minutes (65 minutes) Services Performed: Patient management by me, Time spent at bedside, Reviewing test results, Discussing patient care, Documentation in record Critical Care Notes: Severe allergic reaction requiring aggressive IV and inhaled therapy. Scribe Attestation Portions of this note were transcribed by Riri Aponte. I, Dr. Raya personally performed the history, physical exam and medical decision-making; I reviewed and confirmed the accuracy of the information in the transcribed note. Signed by: Greyson Watts, 02/23/17 and 04:50. copies to: Meera Girard Howard L MD Feb 23, 2017 03:07 Riri Crawley Feb 23, 2017 03:22
[2017-02-23] MEDS ORDERED: Ondansetron 2 mg/mL 2 mL Inj IVPUSH PRN (03:50)
[2017-02-23] MEDS: HYDROmorphone 0.5 mg/0.5 mL iSecure Syringe IVPUSH PRN ×2 (04:05→06:03)
[2017-02-23] MEDS ORDERED: EPIN0.3P2 IJ (06:44)
[2017-02-23] MEDS ORDERED: PRE20 PO (06:44)
[2017-02-23 06:57] VITALS: BP 124/76; PULSE 67; RESP 12; O2SAT 96
== END 2017-02-23 06:58 | disposition home or self-care (01) ==
LOC: SED 02:47
DX: R06.2 Wheezing (principal); R10.9 Unspecified abdominal pain; T78.2XXA Anaphylactic shock, unspecified, initial encounter; M79.7 Fibromyalgia; I10 Essential (primary) hypertension; J45.909 Unspecified asthma, uncomplicated; Z90.89 Acquired absence of other organs; Z87.19 Personal history of other diseases of the digestive system; Z98.51 Tubal ligation status; Z79.51 Long term (current) use of inhaled steroids; Z88.1 Allergy status to other antibiotic agents; Z88.0 Allergy status to penicillin; Z88.5 Allergy status to narcotic agent; Z88.8 Allergy status to other drugs, medicaments and biological substances
CPT/HCPCS: 94640; 94664; 96372; 96374; 96375; 96376; 99291; J0171; J1170; J2405; J2930; J7613

== ENCOUNTER → 2017-04-15 | Day surgery (SDC) | payer OTHER ==
[~2017-04-15] VITALS: Ht 185.4 cm; Wt 144.0 kg
[~2017-04-15] MED LIST changes: +ALBU18HF INH; -ALBU8.5H2 IH; +CHOL40003 PO; +DEXL60CA5 PO; +DICY10CA56 PO; -ERGO2000 PO; -HYDR-4003 PO; +Lactated Ringer's 1,000 ML IV ONE; -ONDA4TAB12 PO; -ONDA8TAB10 PO; -OXYC1TAB24 PO; +PRE10 PO; +Propofol 10,000 mCg/mL 20 mL Inj ONE; -TIZA2CAP9 PO; +[UNRECOGNIZED DRUG - OTHER] INHALATION
[2017-04-15 13:09] VITALS: BP 144/79; PULSE 117; RESP 16; O2SAT 97
--- NOTE | 2017-04-15 13:55 | PCM.HPANE ---
Patient Data Surgeon Admitting Provider: Attending Provider:Jose Carlin MD Primary Care Physician:Meera Girard Other Provider:Anny Mayoingham Anesthesia Reason for Visit Rectal Bleeding Ht/WT & BMI Height (Feet): 6 Height (Inches): 1 Weight (Kilograms): 144 Body Mass Index 42.00 Allergies Coded Allergies: Cephalosporins (Verified Allergy, Severe, KEFLEX=N/V, 04/15/17) Contrast Media (Verified Allergy, Severe, Anaphylaxis, 04/15/17) codeine (Verified Allergy, Severe, N/V, 04/15/17) Penicillins (Verified Allergy, Intermediate, hives, vomiting AMOXICILLIN IS OK, 04/15/17) cyclobenzaprine (Verified Allergy, Intermediate, ITCH ALL OVER, 04/15/17) topiramate (Verified Allergy, Intermediate, VISUAL PROBLEMS, 04/15/17) promethazine (Verified Allergy, Unknown, Restlessness, 04/15/17) cephalexin (Verified Adverse Reaction, Mild, VOMITTING, 04/15/17) orange juice (Verified Adverse Reaction, Mild, ANGIODERMA, 04/15/17) pineapple (Verified Adverse Reaction, Mild, ANGIODERMA, 04/15/17) metoclopramide (Verified Adverse Reaction, Unknown, 04/15/17) LEGS TWITCH Past Anesthesia History Anesthesia History: Positive for:: Abnormal Airway (SMALL AIRWAY), Denies:: Anesthesia Reactions, Difficult Intubation, Fam Anesthesia Reaction , Fam Malignant Hypertherm, Malignant Hyperthermia Diabetes History Hx Diabetes?: No MRSA MRSA: No Medications Active Scripts Epinephrine (Epipen 2-Danny)0.3 Mg/0.3 Ml Auto.injct0.3 Mg IJ DAILY PRN For Anaphyllaxis #1 PACK Prov:Dannie Raya MD 02/23/17 Hyoscyamine SL 0.125 Mg Subl0.125 Mg SL QID #15 TAB.SL Prov:Declan Alvarenga MD 05/15/16 Reported Medications Albuterol Sulfate (Ventolin HFA Inhaler)200 Puff/18 Gm Inhaler2 Puff INH Q4 PRN For Wheezing #1 INHALER Ref 0 04/11/17 Dicyclomine (Bentyl)10 Mg Ojqhbvf00 Mg PO QID 04/11/17 Duloxetine 30 Mg Capsule.dr30 Mg PO DAILY Ref 0 10/01/16 Propranolol HCl 20 Mg Youjyy62 Mg PO HS 05/10/16 Hydroxyzine HCl (HydrOXYzine Hcl)50 Mg Ohersk44 Mg PO HS 05/10/16 Famotidine 40 Mg Gerpge33 Mg PO HS 05/10/16 Alprazolam 1 Mg Tablet1 Mg PO DAILY PRN panic attack 09/14/14 Lamotrigine (Lamictal)100 Mg Uohbzt325 Mg PO HS 30 Days Ref 0 09/14/14 Citalopram 20 Mg Jodiee72 Mg PO HS 07/28/14 Discontinued Reported Medications Cholecalciferol (Vitamin D3) (Vitamin D3)4,000 Unit Capsule4,000 Unit PO DAILY 04/11/17 Prednisone (PredniSONE)10 Mg Aoshwc39 Mg PO DAILY Ref 0 04/11/17 Dexlansoprazole ER (Dexilant)60 Mg Cxuapcq11 Mg PO DAILY 30 Days Ref 0 04/11/17 [arunity ellipta] No Conflict Check1 Puff INHALATION DAILY 04/11/17 Omeprazole 20 Mg Tablet.dr20 Mg PO BID Ref 0 10/01/16 Montelukast (Singulair)10 Mg Hwpjmy71 Mg PO HS 30 Days Ref 0 12/15/14 Tizanidine 2 Mg Capsule2 Mg PO TID 10/01/16 Hydrocodone-Acetaminophen 5-325 mg 1 Each Tablet1 Tablet PO Q4H PRN For Pain Ref 0 10/01/16 Ergocalciferol (Vitamin D2) (Vitamin D2)2,000 Unit Pzjntw38,000 Unit PO WEEKLY 10/01/16 Ondansetron ODT 4 Mg Tab.rapdis4 Mg PO Q4 PRN For Nausea 05/10/16 Albuterol HFA (Proair HFA)8.5 Gm Hfa.aer.ad2 Puffs IH Q4 PRN For Shortness of Breath #1 INHALER 09/14/14 Epinephrine (Epipen 2-Danny)0.3 Mg/0.3 Ml Auto.injct0.3 Mg IJ DIRECTED 09/14/14 Discontinued Scripts Prednisone (PredniSONE)20 Mg Vlclim09 Mg PO TID #15 TABLET Prov:Dannie Raya MD 02/23/17 Ondansetron ODT 8 Mg Tab.rapdis8 Mg PO QID #30 TABLET Prov:Sam Miguel MD 02/15/17 oxyCODONE-Acetaminophen 5-325 mg 1 Each Tablet1-2 Tab PO Q6H PRN For Pain #10 TABLET Prov:Graciela Francisco DO 01/17/17 History History of ENT Problems?: No HEENT History: Positive for:: Abnormal Airway (SMALL AIRWAY) Dysphagia (OCCASIONALLY) Denies:: Difficult Intubation Hearing Problem Denture Type: Full- Upper Full- Lower Teeth Condition: No Teeth Other HEENT Pertinent History: left teeth at home Hx of Heart Problems?: Yes Cardiovascular History: Positive for:: Hypertension Denies:: AICD Atrial Fibrillation Chest Pain Congestive Heart Failure Pacemaker Valvular Heart Disease Hx of Respiratory Problem?: Yes Respiratory History: Positive for:: Asthma Dyspnea Denies:: COPD Chest Surgery Cough Emphysema Hemoptysis Pneumonia Tuberculosis Hx Neurologic Problems?: Yes Neurological History: Positive for:: Headaches Denies:: Alzheimer's Disease CVA Dementia Dizziness Parkinson's Disease Seizures Hx of GI Problems?: Yes Other History/Comment IBS, Eosiniphilic esophagitis, ulcers Hx of Problems?: No HX of Peritoneal Dialysis: No Female Hx: Denies:: Currently (tubal ligation) Endometriosis Pelvic Inflammatory Problems with Breasts? Skin History: Denies:: History Skin Disorders? Pressure Ulcers Hx Musculoskeletal Problems?: No Musculoskeletal History: Denies:: Joint Replacement Hx of Psycho/Social Problems?: Yes Psycho Social History: Positive for:: Anxiety Bipolar Disorder Hx Depression Denies:: Suicide Attempt Other History/Comment No benzos today, anxious Hx Surgeries?: Yes (Appy, TUBAL LIGATION) Hx Any Other Health Problems?: Yes Other History: Positive for:: Hospitalization (2 C-SECTIONS, D AND C) Denies:: Cancer Endocrine Disease Thyroid Disease History Blood Transfusions: Denies:: Blood Transfuse Reaction Blood Transfusions Hx Diabetes: No Hx Alcohol Use: NoHx Substance Use: Yes (Daily marijuana) Smoking Status: Former Smoker Have You Smoked inLast 12 mo: No Stop/Bang Treated for Sleep Apnea?: Yes Do You Have a CPAP Machine?: No (doesn't use it) S-Snoring: Do You Snore Loudly: Yes T-Tired: feel tired, fatigued: Yes O-Obsered: Observed not breath: No P-Blood Pressure: treated: Yes B- Body Mass Index > 35 kg/m2: Yes A- Age over 50: No N- Neck Large Circumference: Yes G- Gender Male: No JACI Total Score: 5 Risk Assessment Category Category 1A: Patient has history of documented sleep apnea, and HAS NOT received any narcotic, sedative or anesthesia administration during this stay. Category 1B: Patient has history of documented sleep apnea, and HAS received any narcotic , sedative or anesthesia administration during this stay Category 2: Patient has SUSPECTED Obstructive Sleep Apnea, and HAS received any narcotic , sedative or anesthesia administration during this stay. Category 3: Patient has SUSPECTED Obstructive Sleep Apnea and HAS NOT received narcotic, sedative or anesthesia administration during this stay. Category 4: Outpatient in Procedural Areas with known sleep apnea or who screen positive for High Risk via the STOP/BANG questionnaire. Exam Exam Vital Signs Vital Signs Date Time Temp Pulse Resp B/P Pulse Ox O2 Delivery O2 Flow Rate FiO2 04/15/17 13:09 36.3 117 16 144/79 97 Room Air General Appearance: Alert, Oriented X3, Cooperative, No Acute Distress HEENT/AIRWAY: MP 2 Lungs: Clear to Auscultation, Normal Air Movement Heart: Exam Unremarkable, Regular Rate/Rhythm, No Murmurs/Rubs/Gallops Plan Impression Patient chart reviewed, patient interviewed and anesthestic plan with risks, benefits, and alternatives discussed, and informed consent obtained. ASA Physical Status: ASA3 Severe Disease Anesthetic Plan: GA Bene/Risks/Altern/Consents: Yes HP Complete Prior to Induction: Yes Jose Carlson MD Apr 15, 2017 13:55
[2017-04-15 14:26] VITALS: BP 119/66; PULSE 85; RESP 18; O2SAT 95
--- NOTE | 2017-04-15 14:26 | PCM.ANEP1 ---
Post Anesthesia PACU Phase 1 Assessment Vital Signs Vital Signs Date Time Temp Pulse Resp B/P Pulse Ox O2 Delivery O2 Flow Rate FiO2 04/15/17 13:09 36.3 117 16 144/79 97 Room Air Anesthetic Administered: GA Level of Alertness: Sleepy, easy to arouse MILLAN's with Equal Strength: Yes Pain: No Nausea or Vomiting: No CV Function & Hydration Stable: Yes Airway Device: Oxygen Delivery: Room Air Lungs: Clear to Auscultation, Normal Air Movement Dermatome Level: Full Sensation PACU Phase 2 Assessment Complications: No Follow up Care: No Patient Instructions Provided: N/A Jose Carlson MD Apr 15, 2017 14:26
[2017-04-15 14:35] VITALS: BP 133/69; PULSE 87; RESP 18; O2SAT 99
[2017-04-15 14:47] VITALS: BP 115/70; PULSE 91; RESP 18; O2SAT 99
--- NOTE | 2017-04-15 14:47 | ENDO ---
[address] [address] ENDOSCOPY PROCEDURE PATIENT: AC AMARAL : 1985 MR#: [id number] ADMIT: 04/15/2017 JOB ID: [id number] DATE: 04/15/2017 TYPE OF OPERATION: Colonoscopy with biopsy. PREOPERATIVE DIAGNOSIS(ES): 1. Rectal bleeding. 2. Diarrhea. POSTOPERATIVE DIAGNOSIS(ES): Small internal hemorrhoids. ANESTHESIA: Monitored anesthesia care. COMPLICATIONS: None. BLOOD LOSS: Minimal. DESCRIPTION OF PROCEDURE: After risks and benefits were explained to the patient, informed consent was obtained. After anesthesia administered, colonoscope was then inserted from the rectum to the cecum to the terminal ileum and mucosa carefully examined. Prep of the patient was fair. After the procedure was done, the scope withdrawn and procedure terminated. FINDINGS: Upon inspection of the anus, no masses, hemorrhoids, ulcers, or fissures that were seen. Throughout the entire examination, no polyps, masses or lesions. Biopsies taken of the terminal ileum and random colon. Retroflexion showed small internal hemorrhoids. IMPRESSION: Small internal hemorrhoids. RECOMMENDATIONS: 1. Await pathology results. 2. Stool softeners daily. 3. Followup in GI clinic as needed.
--- NOTE | 2017-04-21 16:09 | PATH ---
SURGICAL PATHOLOGY Attending Physician:Jose Carlin MD CASE STATUS: Signed Out PATIENT NAME: AC AMARAL PID: [id number] : 1985 DATE COLLECTED:04/15/2017 00:00 SPECIMEN: 1: Ileum, Biopsy 2: Colon, Biopsy CLINICAL HISTORY: 1). TERMINAL ILEUM BIOPSY 2). RANDOM COLON BIOPSY FINAL DIAGNOSIS: 1. Terminal Ileum, Biopsy: Ileal mucosa with no diagnostic abnormality. Negative for active inflammation, granulomata, dysplasia or malignancy. 2. Random Colon, Biopsies: Colonic mucosa with no diagnostic abnormality. Negative for active or microscopic colitis. Negative for granulomata, dysplasia or malignancy. ICD10: R19.7 GROSS DESCRIPTION: The specimen is received in two formalin filled containers labeled with the patient's name. 1). The specimen is labeled " TI " and consists of 2 portions of tissue which aggregate to 0.3 x 0.3 x 0.2 CM. The specimen is entirely submitted in cassette 1A. 2). The specimen is labeled "random colon" and consists of 5 portions of tissue which aggregate to 0.5 x 0.4 x 0.2 CM. The specimen is entirely submitted in cassette 2A. 04/16/2017SC ICD-9 CODES: CPT CODES: 1: 63123 2: 18781 Electronically Signed Out Darryl Mccoy MD, Ph.D. [facility] Pathology [facility] [address], [place] [address] Technical component performed at [facility], [facility] [address], [place], [address]
== END | disposition home or self-care (01) ==
LOC: END 02:26
PROVIDERS: ATTEND Internal Medicine Gastroenterology
DX: K62.5 Hemorrhage of anus and rectum (principal); R10.32 Left lower quadrant pain; R19.7 Diarrhea, unspecified; K64.8 Other hemorrhoids; G47.33 Obstructive sleep apnea (adult) (pediatric); E55.9 Vitamin D deficiency, unspecified; M79.7 Fibromyalgia
CPT/HCPCS: 45380; J2704; J7120